=== PATIENT | male | born 1955 | race Caucasian/White ===

== ENCOUNTER 2017-03-08 12:38 | Emergency (ER) | payer MEDICARE ==
[2017-03-08 12:33] LABS: URINE BILIRUBIN NEGATIVE (NEG); URINE BLOOD SMALL (NEG); URINE GLUCOSE (UA) NEGATIVE (NEG); URINE KETONE NEGATIVE (NEG); URINE LEUKOCYTE ESTERASE NEGATIVE (NEG); URINE NITRITE NEGATIVE (NEG); URINE PROTEIN NEGATIVE (NEG); URINE SPECIFIC GRAVITY 1.015 (1.003-1.030)
[2017-03-08 12:35] LABS: URINE APPEARANCE CLEAR; URINE COLOR YELLOW
[~2017-03-08 12:38] MED LIST: ASPIRIN EC81 MG PO; BACTRIM DS TAB1 EAC2 PO; METHAZOLAMIDE PO; MULTIVITAMINS1 EAC6 PO; MUPIROCIN22 G2 TP; SIMVASTATIN20 M1 PO
[2017-03-08 12:47] LABS: URINE EPITHELIAL CELLS 0-1 /[HPF] (0-10); URINE WBC 0 /[HPF] (0-5)
[2017-03-08] MEDS ORDERED: CIPRO500 M2 PO (13:24)
== END 2017-03-08 13:41 ==
LOC: EDMED 12:38
PROVIDERS: Emergency Medicine
PROC: 4A0D7LZ Measurement of Urinary Volume, Via Natural or Artificial Opening (ICD-10-PCS; principal; 2017-03-08)
DX: K64.4 Residual hemorrhoidal skin tags (principal); R31.9 Hematuria, unspecified; Z90.89 Acquired absence of other organs